=== PATIENT | male | born 1980 | race Caucasian/White ===

== ENCOUNTER 2021-04-30 22:27 | Emergency (ER) | payer MEDICAID ==
[~2021-04-30] VITALS: Ht 170.2 cm; Wt 77.1 kg
[2021-04-30] MEDS ORDERED: ATOR20TA PO (22:52)
[2021-04-30] MEDS ORDERED: METOPROLOL PO (22:52)
[2021-04-30] MEDS ORDERED: CLOP75TA15 PO (22:52)
--- NOTE | 2021-04-30 23:00 | NUR ---
MD Hector Mao in room doing MSE.
[2021-04-30] MEDS ORDERED: SULFAMETH/TRIMETH 800/160 MG TABLET ONE (23:13)
--- NOTE | 2021-04-30 23:13 | NUR ---
Patient is resting comfortably in bed using cellphone, no acute distress noted.
[2021-04-30] MEDS ORDERED: SULFAMETH/TRIMETH 800/160 MG TABLET PO ONE (23:15)
--- NOTE | 2021-04-30 23:16 | NUR ---
Contacted radiology department to call [employer] to come in for patient.
--- NOTE | 2021-04-30 23:51 | NUR ---
[facility] tech in room with patient to do ultrasound.
[2021-05-01] MEDS ORDERED: SULF1TAB48 PO (00:28)
--- NOTE | 2021-05-01 00:38 | NUR ---
Patient discharged to home in stable condition. A/O x 4, denies any pain/discomfort upon discharge. Written and verbal after care instructions given. Patient verbalizes understanding of instructions. Stressed follow up or return to ER for worsening s/s. Steady gait.
[2021-05-01 00:39] VITALS: BP 137/77
== END 2021-05-01 00:40 | disposition home or self-care (01) ==
LOC: ER 22:30
DX: S80.861A Insect bite (nonvenomous), right lower leg, initial encounter (principal); W57.XXXA Bitten or stung by nonvenomous insect and other nonvenomous arthropods, initial encounter; Y92.89 Other specified places as the place of occurrence of the external cause; R60.0 Localized edema; F17.210 Nicotine dependence, cigarettes, uncomplicated; I25.2 Old myocardial infarction; Z95.5 Presence of coronary angioplasty implant and graft; Z79.02 Long term (current) use of antithrombotics/antiplatelets; Z79.899 Other long term (current) drug therapy
CPT/HCPCS: A4663